=== PATIENT | female | born 2000 | race Caucasian/White ===

== ENCOUNTER 2020-11-17 11:57 | Emergency (ER) | payer BC, MEDICAID, SELFPAY ==
[2020-11-17 12:13] VITALS: BP 140/77; PULSE 101; RESP 18; TEMP 36.6; O2SAT 100; BMI 19.5
[2020-11-17] MEDS: sodium chloride 0.9% 1,000 ML 999 ML IV (12:42)
--- NOTE | 2020-11-17 12:43 | ED_ITS ---
HPI - Syncope General: Chief Complaint: Syncope Stated Complaint: syncopal episode in shower 10 wks Time Seen by Provider: 11/17/20 12:17 History of Present Illness: HPI narrative: The patient is a 19-year-old female G1 at 10 weeks who comes to the ER after an episode of syncope in the shower. She says she felt lightheaded and passed out for about 45 seconds. She denies any injuries. She says prior to being she had frequent episodes of lightheadedness but has never passed out. She admits to eating dinner and breakfast this morning but says she feels like she has not drink enough liquids. MD complaint: loss of consciousness -: second(s) (45) Prodromal symptoms: lightheaded Context: standing up Injuries sustained associated with event: none Associated symptoms: Reports no associated symptoms; Deny abdominal pain, chest pain or headache(s) Treatments prior to arrival: none Review of Systems General: Reports: 10 or more systems reviewed and unremarkable except in HPI and below Const: Denies: fatigue Eyes: Denies: change in vision, blurry vision or eye redness ENMT: Denies: throat pain, swelling of lips/tongue, ear or mastoid pain or nasal congestion Card: Denies: chest pain, palpitations, irregular heart rhythm, edema, dyspnea on exertion or orthopnea Resp: Denies: dyspnea, productive cough or non-productive cough GI: Denies: abdominal pain, diarrhea or GI cramping : Denies: flank pain, difficulty voiding, urinary frequency or urinary urgency Musc: Denies: neck pain, back pain, extremity pain, joint pain, joint redness, limited range of motion or muscle weakness Skin/Breast: Denies: rash, pruritus, erythema, skin pain or skin tenderness Neuro: Denies: headache(s), numbness in extremities, weakness in extremities, sensory changes, difficulty walking, dizziness, confusion or Slurred speech present Psych: Denies: anxiety or depression Endo: Denies: polyuria All/Imm: Denies: urticaria, throat swelling or tongue swelling Physical Exam Const: COMMON NORMALS: no acute distress, average body habitus, patient oriented x3, no limitations, healthy appearing, alert and well nourished GENERAL APPEARANCE: cooperative, comfortable, well kempt and well developed ORIENTATION/CONSCIOUSNESS: Yes awake, Yes oriented to person, Yes oriented to place and Yes oriented to time HENMT: COMMON NORMALS: normocephalic, external ears normal and Normal external nose present HEAD & SCALP: normal to inspection and normocephalic NOSE: Normal external nose present EXTERNAL EAR: Yes external ears normal MOUTH: Normal oral and palatal mucosa present THROAT: posterior oropharynx normal Eye: COMMON NORMALS: Equal, round and reactive pupils present and EOMs intact bilaterally GENERAL EYE: appearance normal, both eyes and all related structures PUPIL: Yes Equal, round and reactive pupils present Neck/C-Spine: COMMON NORMALS: full ROM, no lymphadenopathy, no meningeal signs and no JVD GENERAL: Yes normal visual inspection Lymph: LYMPHATIC: no lymphadenopathy noted Chest: COMMONS NORMALS: normal inspection of the chest and normal palpation of entire chest wall Resp: COMMON NORMALS: normal respiratory effort, No retractions, No use of accessory muscles, clear to auscultation bilaterally and percussion normal EFFORT & INSPECTION: Yes able to speak in complete sentences AUSCULTATION: clear to auscultation bilaterally PERCUSSION: percussion normal Cardio: COMMON NORMALS: no JVD, regular rate, regular rhythm, S1 normal heart sound present, S2 normal heart sound present and Peripheral pulses 2+ throughout RATE: regular rate RHYTHM: regular rhythm HEART SOUNDS: S1 normal heart sound present and S2 normal heart sound present PERIPHERAL PULSES: Peripheral pulses 2+ throughout GI: COMMON NORMALS: Normal to inspection, nondistended, normoactive bowel sounds present, Soft to palpation, non-tender and no masses INSPECTION: Yes normal to inspection PALPATION: Yes Soft to palpation : COMMON NORMALS: Yes no CVA tenderness BLADDER/KIDNEY EXAM: Yes no CVA tenderness Back/Pelvis: COMMON NORMALS: no CVA tenderness, thoracic and lumbar spine normal to inspection, no thoracic nor lumbar tenderness and thoraco-lumbar ROM normal Extremity: COMMON NORMALS: normal to inspection, full ROM, capillary refill normal, no joint enlargement and no pedal edema GENERAL: Yes normal exam except as noted Neuro: COMMON NORMALS: patient oriented x3, CN's II-XII intact bilaterally, moves all extremities, no focal motor deficits, no sensory deficits noted and gait normal SENSORIUM/ORIENTATION: Yes alert, Yes oriented to person, Yes oriented to place and Yes oriented to time MENINGEAL SIGNS: Yes no meningeal signs Psych: COMMON NORMALS: mental status grossly normal, Normal thought process present, cooperative, normal affect and speech normal APPEARANCE: Yes well kempt ATTITUDE: Yes calm SPEECH: Yes normal speech THOUGHT PROCESS: Normal thought process present Skin: COMMON NORMALS: no rashes or lesions noted GENERAL SKIN EXAM: no rashes or lesions noted Course Vital Signs: Vital signs: Vital Signs Temperature 97.9 F 11/17/20 12:13 Pulse Rate 95 11/17/20 14:53 Respiratory Rate 18 11/17/20 14:53 Blood Pressure 111/67 11/17/20 14:53 Pulse Oximetry 98 11/17/20 14:53 MDM - Syncope MDM Narrative: Medical decision making narrative: The patient came in with an episode of syncope at home. No injuries. She is 10 weeks and has no issues with her . Denies contraction pains or vaginal discharge. Likely a mild dehydration event. She was given a liter of IV fluids. Lab work and urine looks clean. Stable for discharge. Discussed with Dr. Evangelista and recommended follow-up this week with him. ER with worsening symptoms Lab Data: Labs: Lab Results 11/17/20 11/17/20 11/17/20 Range/Units 12:40 12:40 12:40 WBC 6.9 (4.5-13.0) 10^3/ uL RBC 4.55 (4.1-5.3) 10^6/u L Hgb 13.4 (11.5-15.3) g/dL Hct 39.3 (37.0-47.0) % MCV 86.4 (81-99) fL MCH 29.5 (28.0-34.0) pg MCHC 34.1 (30.0-36.0) g/dL RDW 11.9 L (12.1-15.1) % Plt Count 150 (130-400) 10^3/c mm MPV 9.1 (7.4-10.4) fL Neut % (Auto) 75.7 % Lymph % (Auto) 14.1 % [place] % (Auto) 8.3 % Eos % (Auto) 1.2 % Baso % (Auto) 0.3 % Neut # (Auto) 5.22 (1.8-8.0) 10^3/u L Lymph # (Auto) 1.0 L (1.5-6.5) 10^3/u L [place] # (Auto) 0.6 (0.2-0.9) 10^3/u L Eos # (Auto) 0.1 (0.0-0.8) 10^3/u L Baso # (Auto) 0.0 (0.0-0.1) 10^3/u L Nucleated RBC % (a uto) 0 % Nucleated RBCs # 0.0 /100WBC Sodium 136 (136-145) mmol/L Potassium 3.7 (3.5-5.1) mmol/L Chloride 102 (98-107) mmol/L Carbon Dioxide 23 (22-29) mmol/L Anion Gap 14.7 (5-19) BUN 7 (6-20) mg/dL Creatinine 0.4 L (0.5-0.9) mg/dL GFR Calculation 203.5 H (90-130) mL/min Glucose 88 (65-115) mg/dL Calculated Osmolal ity 279 L (285-295) mOsm/k g Calcium 8.8 (8.5-10.5) mg/dL Total Bilirubin 0.3 (0.15-1.2) mg/dL AST 15 (0-32) U/L ALT 12 (0-33) U/L Alkaline Phosphata se 50 (35-105) IU/L Total Protein 7.3 (6.6-8.7) g/dL Albumin 4.0 (3.5-5.2) g/dL Globulin 3.3 (1.3-4.6) g/dL Urine Color Yellow (Yellow) Urine Appearance Sl hazy (CLEAR) Urine pH 6.5 (5-7) Ur Specific Gravit y 1.020 (1.005-1.030) Urine Protein Neg (Negative) Urine Glucose (UA) Norm (Normal) Urine Ketones Negative (Negative) Urine Blood Neg (Negative) Urine Nitrate Negative (Negative) Urine Bilirubin 1+ H (Negative) Urine Urobilinogen 1 H (Negative) mg/dL Ur Leukocyte Teresa ase Negative (Negative) Urine RBC None (0-2) /hpf Urine WBC Rare (0-5) /hpf Ur Squamous Epith Cells 15-25 H (0-5) /hpf Calcium Oxalate Cr ystal 0-4 H /hpf Amorphous Sediment 1+ /hpf Urine Bacteria Trace (NONE) /hpf Fine Granular Cast s 0-4 H /lpf Urine Mucus 1+ /hpf Discharge Plan Discharge Patient Disposition: Home Clinical Impression: Vasovagal syncope, Dehydration Condition: Stable Prescriptions: No Action 28 mg iron- 800 mcg Tablet 1 tab PO DAILY RF: 0 Discharge Orders: Discharge ED (Routine); Ordered 11/17/20 Ordered By: Ty Padilla Referrals: Perla Vargas MD [Primary Care Provider] - Discharge Diet: Advance as tolerated Discharge Activity: Resume usual activity Patient Instructions: Syncope (ED), Opioid Safety Activity Restrictions/Additional Instructions: He passed out from being mildly dehydrated. Please continue to drink lots of water and follow-up with Dr. Evangelista later this week. Return to the ER with worsening symptoms otherwise follow-up with him. Coding Level of Care Code ED Lumber Sorter Machine for Padmaja Fwd Exam Comprehensive
[2020-11-17 12:46] VITALS: BP 133/78; PULSE 101; RESP 18; O2SAT 100
[2020-11-17 12:55] LABS: Basophils % 0.3 %; Eosinophils # 0.1 10^3/uL (0.0-0.8); Eosinophils % 1.2 %; Hematocrit 39.3 % (37.0-47.0); Hemoglobin 13.4 g/dL (11.5-15.3); Lymphocytes % 14.1 %; Mean Corpuscular HGB Conc 34.1 g/dL (30.0-36.0); Mean Corpuscular Hemoglobin 29.5 pg (28.0-34.0); Mean Corpuscular Volume 86.4 fL (81-99); Mean Platelet Volume 9.1 fL (7.4-10.4); Monocytes # 0.6 10^3/uL (0.2-0.9); Monocytes % 8.3 %; Neutrophils # 5.22 10^3/uL (1.8-8.0); Neutrophils % 75.7 %; Nucleated Red Blood Cells % 0 %; Platelet Count 150 10^3/cmm (130-400); Red Blood Count 4.55 10^6/uL (4.1-5.3); Red Cell Distribution Width 11.9 % (12.1-15.1); White Blood Count 6.9 10^3/uL (4.5-13.0)
[2020-11-17 13:03] LABS: Add Urine Microscopic? YES; Bilirubin Urine 1+ (Negative); Blood Urine Neg (Negative); Glucose Urine UA Norm (Normal); Ketones Urine Negative (Negative); Leukocyte Esterase Urine Negative (Negative); Nitrate Urine Negative (Negative); Protein Urine Neg (Negative); Urine Appearance SL Hazy (CLEAR); Urine Color Yellow (Yellow); Urobilinogen Urine 1 mg/dL (Negative); pH Urine 6.5 (5-7)
[2020-11-17 13:05] LABS: Amorphous Sediment Urine 1+ /hpf; Bacteria Urine TRACE /hpf; Calcium Oxalate Crystals Urine 0-4 /hpf; Fine Granular Casts Urine 0-4 /lpf; Mucus Urine 1+ /hpf; Squamous Epithelial Cell Urine 15-25 /hpf (0-5); WBC Urine RARE /hpf (0-5)
[2020-11-17 13:06] LABS: Add Urine Culture? No
[2020-11-17 13:12] LABS: Alanine Aminotransferase 12 U/L (0-33); Alkaline Phosphatase 50 IU/L (35-105); Blood Urea Nitrogen 7 mg/dL (6-20); Calcium 8.8 mg/dL (8.5-10.5); Carbon Dioxide 23 mmol/L (22-29); Chloride 102 mmol/L (98-107); Globulin 3.3 g/dL (1.3-4.6); Glomerular Filtration Rate 203.5 mL/min (90-130); Glucose 88 mg/dL (65-115); Osmolality Calculated 279 mOsm/kg (285-295); Sodium 136 mmol/L (136-145); Total Bilirubin 0.3 mg/dL (0.15-1.2); Total Protein 7.3 g/dL (6.6-8.7)
[2020-11-17 13:17] LABS: Anion Gap 14.7 (5-19); Aspartate Amino Transferase 15 U/L (0-32); Potassium 3.7 mmol/L (3.5-5.1)
[2020-11-17 14:53] VITALS: BP 111/67; PULSE 95; RESP 18; O2SAT 98
[2020-11-17 16:20] VITALS: BP 113/79; PULSE 98; RESP 18; O2SAT 99
== END 2020-11-17 16:23 | disposition home or self-care (01) ==
PROVIDERS: Emergency Provider Family Medicine; PCP Internal Medicine
DX: O26.891 Other specified pregnancy related conditions, first trimester (principal); R55 Syncope and collapse; E86.0 Dehydration; Z3A.10 10 weeks gestation of pregnancy
CPT/HCPCS: 80053; 81001; 85025; 96360; 99283; J7030

== ENCOUNTER 2021-05-27 11:36 | Outpatient (CLI) | payer BC, MEDICAID, SELFPAY ==
[2021-05-27 11:47] VITALS: RESP 17; TEMP 36.9
[2021-05-27 11:48] VITALS: BMI 26.3
[2021-05-27 11:54] VITALS: BP 138/92; PULSE 111
[2021-05-27 12:10] VITALS: BP 127/70; PULSE 91
[2021-05-27 12:25] VITALS: BP 128/75; PULSE 91
[2021-05-27 12:40] VITALS: BP 128/75; PULSE 91
== END 2021-05-27 12:40 | disposition home or self-care (01) ==
LOC: OPOB 11:45 → OBGYN 11:46
PROVIDERS: PCP Internal Medicine; Visit Provider Family Medicine
DX: O16.9 Unspecified maternal hypertension, unspecified trimester (principal); Z3A.00 Weeks of gestation of pregnancy not specified
CPT/HCPCS: 59025; 99211

== ENCOUNTER 2021-06-03 22:40 | Inpatient (IN) | payer BC, MEDICAID, SELFPAY ==
[2021-06-03] VITALS (8 sets, daily range): BP systolic 131–148; BP diastolic 75–91; PULSE 110–116; RESP 14–16; TEMP 36.9–37; BMI 26.4
[2021-06-03] MEDS: miSOPROStol 100 mcg tablet 25 MCG VAGINAL (21:55)
[2021-06-03 22:02] LABS: Basophils # 0.1 10^3/uL (0.0-0.1); Basophils % 0.3 %; Eosinophils % 0.2 %; Hematocrit 40.7 % (37.0-47.0); Hemoglobin 13.8 g/dL (11.5-15.3); Lymphocytes # 1.2 10^3/uL (0.8-4.8); Lymphocytes % 6.7 %; Mean Corpuscular HGB Conc 33.9 g/dL (30.0-36.0); Mean Corpuscular Hemoglobin 29.8 pg (28.0-34.0); Mean Corpuscular Volume 87.9 fl (81-99); Monocytes # 1.3 10^3/uL (0.2-0.9); Neutrophils # 15.54 10^3/uL (1.8-7.7); Neutrophils % 84.9 %; Nucleated Red Blood Cells % 0 %; Platelet Count 141 10^3/cmm (130-400); Red Blood Count 4.63 10^6/uL (4.1-5.3); Red Cell Distribution Width 13.2 % (12.1-15.1); White Blood Count 18.3 10^3/uL (4.0-10.0)
[2021-06-04] VITALS (156 sets, daily range): BP systolic 97–141; BP diastolic 54–93; PULSE 82–151; RESP 14–18; TEMP 35.8–37.1; O2SAT 95–100
[2021-06-04] MEDS: lactated ringers 1,000 ML 999 ML IV (00:19)
[2021-06-04] MEDS: dextrose 5%-lactated ringers 1,000 ML 125 ML IV ×2 (01:23→09:35)
--- NOTE | 2021-06-04 01:30 | ANES.PREANE2 ---
Pre-Anesthetic Assessment Pre-Anesthetic Assessment: Height/Weight: Height 1.7 m Weight 76.657 kg Temp Pulse Resp BP Pulse Ox 98.6 F 93 18 117/65 96 06/03/21 20:25 06/04/21 01:55 06/04/21 01:14 06/04/21 01:55 06/04/21 01:51 Preop Diagnosis: IUP Proposed Procedure: labor epidural Was Beta Izabella taken within 24 hours: N/A Was Clonidine taken within 24 hours: N/A Social: Social History: No alcohol and No tobacco Exam: Pre-Anes Outpt Exam: alert, oriented x 3 and regular rate & rhythm Airway: Submandibular: WNL Cervical ROM: WNL MP: 2 Dentition: Full History/ROS: No significant history except as noted Pulmonary: Pulmonary: None reported CV/HEM: CV/HEM: None reported : : None reported Hepatic: Hepatic: None reported GI: GI: None reported Metabolic: Metabolic: None reported Musc/skel: Musc/skel: None reported Neuropsych: Neuropsych: None reported Anesthetic Plan: ASA status: 2 Anesthesia: Anesthesia Evaluation and Regional (specify below) (epidural) Risk of > 500 ml blood loss (7ml/kg in children): No Meds/Allergies Current Medications: Current Medications Generic Name Dose Route Start Last Admin Trade Name Freq PRN Reason Stop Dose Admin Lactated Ringer's 1,000 mls @ 999 m ls/hr 06/03/21 20:56 06/04/21 01:23 Lactated Ringers IV Infused .Q1H1M PRN Infusion See label comment s Dextrose/Lactated Ringer's 1,000 mls @ 125 m ls/hr 06/03/21 20:56 06/04/21 01:23 Dextrose 5%-Lact ated Ringers IV 125 mls/hr .Q8H PRN Administration AGITATION Misoprostol 25 mcg 06/03/21 21:00 06/03/21 21:55 Misoprostol 100 Mcg Tablet VAGINAL 06/04/21 05:01 25 mcg Q4H DAVIE Administration PFSH Anesthesia Female Reproductive History: : 1 Data Anesthesia CBC & Chem 7: 06/03/21 21:47 Other Labs: Laboratory Results - last 48 hr 06/03/21 21:47 WBC 18.3 H RBC 4.63 Hgb 13.8 Hct 40.7 MCV 87.9 MCH 29.8 MCHC 33.9 RDW 13.2 Plt Count 141 MPV 10.0 Neut % (Auto) 84.9 Lymph % (Auto) 6.7 [place] % (Auto) 7.0 Eos % (Auto) 0.2 Baso % (Auto) 0.3 Neut # (Auto) 15.54 H Lymph # (Auto) 1.2 [place] # (Auto) 1.3 H Eos # (Auto) 0.0 Baso # (Auto) 0.1 Nucleated RBC % (auto) 0 Nucleated RBCs # 0.0 Cardiac Studies: No Data to Display
--- NOTE | 2021-06-04 01:59 | P.ANES_ITS ---
Anesthesia Procedures Procedure/Date: 06/04/21 Epidural: Time Out Performed: Yes Consents Signed: Procedure Consent Consent: from patient, risks and benefits reviewed and patient agrees to proceed Lumbar Level: L3-L4 Epidural position: sitting Epidural procedure: sterile prep of area, 1% lidocaine to numb the area, 18 g needle, neg for parest hesia, test dose given, 1.5% xylocaine 1:200k epi, placed PCEA, no systemic response, sterile dressing applied, L.U.D. no apparent complications and 0.2% Ropiavacaine @ mls/hr (13) Additional Comments: TIARA at 5.5 taped at 12 at skin
[2021-06-04] MEDS: oxytocin 30 UNIT/500 ML BAG IV (05:34)
[2021-06-04] MEDS: ondansetron 2 mg/ML SDV 2 mL 4 MG IVP (05:56)
--- NOTE | 2021-06-04 06:53 | PM.OPHPUD ---
Labor & Delivery H&P Update Date of Procedure: June 04, 2021 Date H&P Performed: 06/02/21 H&P update information: I have reviewed H&P completed within last 30 days, I have examined patient prior to procedure and H&P to be scanned into chart Changes to previous documentation: Contractions less than every 5 minutes, with a cervix dilated to 4 cm. Admission Diagnosis: 20-year-old 1 at 38 weeks estimated gestational age presenting with contractions and cervical change Preop diagnosis: IUP Planned procedure: Spontaneous vaginal delivery Related Problem List Diagnoses (1) 38 weeks gestation of : (2) Active labor at term:
--- NOTE | 2021-06-04 09:16 | PM.DELIVERY ---
Delivery Note: Date of delivery: June 04, 2021 Pre-Delivery Course: The patient presented to the hospital with consistent contractions less than every 5 minutes while making cervical change. She was GBS negative. Covid 19 -. Remainder of labs within normal limits. Her labor was augmented with Cytotec 25 mcg. From there she progressed to complete without difficulty. She had spontaneous rupture of membranes. Delivery: DELIVERY: The patient progressed to complete without difficulty. She delivered a male with a weight of 6 pounds 10 ounces with Apgars of 8, 9. The baby was delivered from the MARTIN position. The baby's mouth and nose were suctioned at the site of the perineum. The baby was then completely delivered and placed on the mother's abdomen. The cord was then clamped and cut. There was no nuchal cord. There was no meconium. The placenta and 3 vessel cord were delivered intact shortly thereafter. The perineum and vaginal vault were carefully examined. Second-degree posterior midline tear was noted that was repaired with 3-0 Vicryl in usual fashion.. Both the mother and the baby were in stable condition. A&P Assessment and plan (1) 38 weeks gestation of : I anticipate routine care. If all goes well, I anticipate she will be discharged tomorrow with her infant. Status: Acute (2) Active labor at term: Status: Acute (3) Spontaneous vaginal delivery: Status: Acute Coding Level of Care Code Acute Horse Trekking Guide for Chg Fwd Diagnoses 38 weeks gestation of Z3A.38 Active labor at term Spontaneous vaginal delivery O80
--- NOTE | 2021-06-04 14:17 | ANE.PACU2 ---
Inpatient post-anesthesia follow up: Airway intact: Yes Vital signs: Temperature 97.9 F Pulse Rate 120 Respiratory Rate 17 Blood Pressure 132/79 Pulse Oximetry 100 Oxygen Delivery Me thod Room Air Oxygen Flow Rate Fraction of Inspir ed Oxygen Hydration adequate: Yes Nausea and vomiting: No Pain level: 2 Mental status: Baseline
[2021-06-04] MEDS: ibuprofen 800 mg tablet PO ×2 (15:15→21:28)
--- NOTE | 2021-06-05 00:22 | P.DS_ITS ---
Discharge Providers PATCH DRILLER Date of Admission: 06/03/21 22:40 Date of Discharge: 06/05/21 Attending Provider at Admission: Ethan Evangelista MD Attending Provider at Discharge: Ethan Evangelista MD Primary Care Provider: Perla Vargas MD Diagnoses at Discharge Discharge Diagnosis (1) 38 weeks gestation of : Status: Acute (2) Active labor at term: Status: Acute (3) Spontaneous vaginal delivery: Status: Acute Reason for Visit Reason for Visit: contractions Hospital Course Hospital Course The patient presented to the hospital in active labor. She had an epidural placed. She progressed to complete without difficulty. She had an unremarkable delivery of a healthy-appearing 38-week male . Her course was also unremarkable. Her bleeding was within normal limits. Her pain was well controlled. She breast-fed well. Information Peripartum Data: Delivery Method: Vaginal Physical Exam Narrative: EXAM NARRATIVE: The patient is alert. She appears comfortable. Her heart has a regular rate and rhythm with no murmurs appreciated. Lungs are clear to auscultation bilaterally. Her fundus is firm and below the umbilicus. Urinary Catheter Management^: [place] Latex: Cath Placed During This Visit: yes Reason for Continuing Indwelling Catheter: Required Immobilization for Trauma or Surgery or Anesthesia Urinary Catheter Date of Insertion: 06/04/21 Urinary Catheter Time of Insertion: 02:34 Discharge Data Data Completed and Pending: Pending at discharge Category Date Time Status Hemagram Timed Lab 06/04/21 23:36 Ordered Vitals: Last Vital Signs Temp 98.2 F 06/04/21 18:00 Pulse 105 H 06/04/21 18:00 Resp 16 06/04/21 18:00 BP 117/72 06/04/21 18:00 Pulse Ox 100 06/04/21 08:41 Discharge Plan Discharge Patient Disposition: Home Condition: Stable Prescriptions: New ibuprofen 800 mg Tablet 800 mg PO TID 45 Days Qty: 135 RF: 0 Continued PNV cmb#95-ferrous fumarate-FA [] 28 mg iron- 800 mcg Tablet 1 tab PO DAILY RF: 0 Discharge Orders: Discharge Order (Routine); Ordered 06/05/21 Ordered By: Ethan Evangelista Referrals: Ethan Evangelista MD [Physician] - 6 Weeks Discharge Diet: Usual diet Discharge Activity: Limit activity as instructed Patient Instructions: Opioid Safety Discharge Attestations PATCH DRILLER Time Spent in Discharge Care*: less than 30 min Specific Discharge Activities: Specific discharge activities: educating patient and educating and/or supporting family/caregiver Coding Level of Care Code Acute Narcotics And Vice Detective for Chg Fwd Diagnoses 38 weeks gestation of Z3A.38 Active labor at term Spontaneous vaginal delivery O80
[2021-06-05 01:13] LABS: Hemoglobin 11.9 g/dL (11.5-15.3); Mean Corpuscular HGB Conc 33.1 g/dL (30.0-36.0); Mean Corpuscular Hemoglobin 30.1 pg (28.0-34.0); Mean Corpuscular Volume 91.1 fl (81-99); Mean Platelet Volume 10.3 fL (7.4-10.4); Platelet Count 117 10^3/cmm (130-400); Red Blood Count 3.95 10^6/uL (4.1-5.3); Red Cell Distribution Width 13.3 % (12.1-15.1); White Blood Count 13.8 10^3/uL (4.0-10.0)
[2021-06-05 04:30] VITALS: BP 123/80; PULSE 85; RESP 14
[2021-06-05] MEDS: ibuprofen 800 mg tablet PO (08:45)
[2021-06-05] MEDS: docusate sodium 100 mg Capsule PO (08:45)
[2021-06-05 09:45] VITALS: BP 117/82; PULSE 84; RESP 18; TEMP 36.7; O2SAT 99
[2021-06-05 12:10] VITALS: BP 113/64; PULSE 90; RESP 18; TEMP 36.7; O2SAT 100
== END 2021-06-05 12:50 | disposition home or self-care (01) | DRG 807 ==
LOC: OPOB 22:41 → OBGYN 22:41
PROVIDERS: Admitting Provider Family Medicine; PCP Internal Medicine; Visit Provider Family Medicine
DX: O70.1 Second degree perineal laceration during delivery (principal); Z37.0 Single live birth; Z3A.38 38 weeks gestation of pregnancy
CPT/HCPCS: 12345; 36415; 51702; 59025; 59409; 85025; 85027; 98960; 99211; J2405; J2795

== ENCOUNTER 2023-09-01 17:10 | Inpatient (IN) | payer OTHER, SELFPAY ==
[2023-09-01] VITALS (10 sets, daily range): BP systolic 137–162; BP diastolic 82–97; PULSE 89–108; RESP 17–18; O2SAT 97; BMI 31.3
[2023-09-01 17:19] LABS: Basophils % 0.3 %; Eosinophils # 0.2 10^3/uL (0.0-0.8); Eosinophils % 1.1 %; Hematocrit 35.9 % (36-47); Lymphocytes # 1.1 10^3/uL (0.8-4.8); Lymphocytes % 7.3 %; Mean Corpuscular HGB Conc 34.3 g/dL (30-55); Mean Corpuscular Hemoglobin 28.1 pg (27-33); Mean Platelet Volume 10.9 fL (7.4-10.4); Monocytes % 6.5 %; Neutrophils # 12.17 10^3/uL (1.8-7.7); Neutrophils % 83.4 %; Nucleated Red Blood Cells % 0 %; Platelet Count 170 10^3/cmm (157-399); Red Blood Count 4.38 10^6/uL (3.85-5.65); Red Cell Distribution Width 13.1 % (12.1-15.1); White Blood Count 14.59 10^3/uL (3.29-11.43)
[2023-09-01] MEDS: lactated ringers 1,000 ML 999 ML IV (18:49)
[2023-09-01] MEDS: oxytocin 30 UNIT/500 ML BAG 600 UNIT IV (19:11)
--- NOTE | 2023-09-01 19:26 | PM.OPHPUD ---
Labor & Delivery H&P Update Date of Procedure: September 01, 2023 Date H&P Performed: 06/02/21 Changes to previous documentation: The patient was 7 cm dilated upon arrival at the hospital. Admission Diagnosis: 22-year-old 2 para 1-0-0-1 at 39 weeks estimated gestational age Planned procedure: Vaginal delivery Other information: The patient is a otherwise healthy 22-year-old female who presented to the hospital in active labor. She was seen in my office earlier in the day. At that time her membranes were stripped. She then began having contractions shortly thereafter that progressed to the point that she came to the hospital. She did not have rupture membranes. She had no other problems. Her been unremarkable. Her lab work were also unremarkable. Her blood was a positive. Her antibody screen is negative. Her RPR was nonreactive. Her HIV hepatitis chlamydia and gonorrhea were also negative. She is rubella immune. Her Pap test was normal. Her drug screen was negative. She passed her glucose screen. She was GBS negative. Related Problem List Diagnoses (1) 39 weeks gestation of : A&P Assessment and plan (1) 39 weeks gestation of : The patient desires natural delivery without an epidural. Will consider an amniotomy when she is ready. Otherwise anticipate a spontaneous vaginal delivery. Status: Acute
--- NOTE | 2023-09-01 19:32 | PM.DELIVERY ---
Delivery Note: Date of delivery: September 01, 2023 Pre-delivery diagnoses: 22-year-old 2 para 1-0-0-1 at 39 weeks estimated gestational age Post-delivery diagnoses: Status post spontaneous vaginal delivery Procedure: Spontaneous vaginal delivery Delivering Physician: Ethan Evangelista Estimated blood loss (mL): 150 Pre-Delivery Course: The patient presented to the hospital in active labor. She progressed from 7 to complete without difficulty. An amniotomy was performed when she was 8 cm. There were no problems or complications. Delivery: DELIVERY: The patient progressed to complete without difficulty. She delivered a male with a weight of 7 pounds 14 ounces with Apgars of 9, 9. The baby was delivered from the MARTIN position. The baby's mouth and nose were suctioned at the site of the perineum. The baby was then completely delivered and placed on the mother's abdomen. The cord was then clamped and cut. There was a nuchal cord x 1. The baby was delivered through the cord.. There was no meconium. The placenta and 3 vessel cord were delivered intact shortly thereafter. The perineum and vaginal vault were carefully examined. No lacerations were noted. Both the mother and the baby were in stable condition. Post-Delivery Status: Good A&P Assessment and plan (1) Spontaneous vaginal delivery: I anticipate routine care. (2) 39 weeks gestation of : Coding Level of Care Code Acute Code for Chg Fwd Diagnoses Spontaneous vaginal delivery O80 39 weeks gestation of Z3A.39
[2023-09-01] MEDS: benzocaine-menthol 78 gm Canister 1 SPRAY TOPICAL (20:45)
[2023-09-01] MEDS: lanolin oint 7 gm 1 APPLIC TOPICAL (20:45)
[2023-09-02] VITALS (7 sets, daily range): BP systolic 135–163; BP diastolic 74–111; PULSE 80–97; RESP 16–17; TEMP 36.5–36.8; O2SAT 97
--- NOTE | 2023-09-02 07:30 | PM.OBGYDC ---
Discharge Providers AVIATION SURVIVAL TECHNICIAN Date of Admission: 09/01/23 17:10 Date of Discharge: 09/02/23 Attending Provider at Admission: Ethan Evangelista MD Attending Provider at Discharge: Ethan Evangelista MD Primary Care Provider: Ethan Evangelista Diagnoses at Discharge Discharge Diagnosis (1) Spontaneous vaginal delivery: Status: Acute (2) 39 weeks gestation of : Status: Acute Reason for Visit Reason for Visit: contractions Hospital Course Hospital Course The patient presented to the hospital in active labor. She quickly progressed to 8 cm. An amniotomy was performed. About 1/2-hour after that she had unremarkable spontaneous vaginal delivery of a healthy male infant. Her course has been unremarkable. Her bleeding was within normal limits. Her pain was well-controlled. She breast-fed well. Information Peripartum Data: Infant Delivery Method: Vaginal Physical Exam Narrative: The patient is alert. She appears comfortable. Her heart has a regular rate and rhythm with no murmurs appreciated. Lungs are clear to auscultation bilaterally. Her fundus is firm and below the umbilicus. Discharge Data Studies Completed and Pending Pending at discharge Category Date Time Status Hemagram Timed Lab 09/02/23 07:31 Uncollected Laboratory Results WBC 14.59 10^3/uL (3.29-11.43) H 09/01/23 17:05 RBC 4.38 10^6/uL (3.85-5.65) 09/01/23 17:05 Hgb 12.30 g/dL (11.27-16.99) 09/01/23 17:05 Hct 35.9 % (36-47) L 09/01/23 17:05 MCV 82.0 fl (85-98) L 09/01/23 17:05 MCH 28.1 pg (27-33) 09/01/23 17:05 MCHC 34.3 g/dL (30-55) 09/01/23 17:05 RDW 13.1 % (12.1-15.1) 09/01/23 17:05 Plt Count 170 10^3/cmm (157-399) 09/01/23 17:05 MPV 10.9 fL (7.4-10.4) H 09/01/23 17:05 Neut % (Auto) 83.4 % 09/01/23 17:05 Lymph % (Auto) 7.3 % 09/01/23 17:05 [place] % (Auto) 6.5 % 09/01/23 17:05 Eos % (Auto) 1.1 % 09/01/23 17:05 Baso % (Auto) 0.3 % 09/01/23 17:05 Neut # (Auto) 12.17 10^3/uL (1.8-7.7) H 09/01/23 17:05 Lymph # (Auto) 1.1 10^3/uL (0.8-4.8) 09/01/23 17:05 [place] # (Auto) 1.0 10^3/uL (0.2-0.9) H 09/01/23 17:05 Eos # (Auto) 0.2 10^3/uL (0.0-0.8) 09/01/23 17:05 Baso # (Auto) 0.0 10^3/uL (0.0-0.1) 09/01/23 17:05 Nucleated RBC % (auto) 0 % 09/01/23 17:05 Nucleated RBCs # 0.0 /100WBC 09/01/23 17:05 Vitals Last Vital Signs Pulse 97 09/02/23 05:34 Resp 16 09/02/23 03:48 BP 135/90 09/02/23 05:34 Pulse Ox 97 09/02/23 01:25 O2 Del Method Room Air 09/01/23 22:30 Results Labs OB ([facility]): Hct 35.9 % (36-47) L 09/01/23 Hgb 12.30 g/dL (11.27-16.99) 09/01/23 Plt Count 170 10^3/cmm (157-399) 09/01/23 Discharge Plan Discharge Patient Disposition: Home Condition: Stable Prescriptions: New ibuprofen 800 mg Tablet 800 mg PO TID Qty: 45 0RF Continued PNV cmb#95-ferrous fumarate-FA [] 28 mg iron- 800 mcg Tablet 1 tab PO DAILY Discharge Orders: Discharge Order (Routine); Ordered 09/02/23 Ordered By: Ethan Evangelista Referrals: Ethan Evangelista MD [Physician] - 6 Weeks Discharge Diet: Usual diet Discharge Activity: Limit activity as instructed Patient Instructions: Opioid Safety Discharge Attestations AVIATION SURVIVAL TECHNICIAN Time Spent in Discharge Care*: less than 30 min Coding Level of Care Code Acute Code for Chg Fwd Diagnoses Spontaneous vaginal delivery O80 39 weeks gestation of Z3A.39
[2023-09-02 08:17] LABS: Hematocrit 36.7 % (36-47); Mean Corpuscular HGB Conc 33.2 g/dL (30-55); Mean Corpuscular Hemoglobin 27.8 pg (27-33); Mean Corpuscular Volume 83.6 fl (85-98); Mean Platelet Volume 11.2 fL (7.4-10.4); Platelet Count 172 10^3/cmm (157-399); Red Blood Count 4.39 10^6/uL (3.85-5.65); Red Cell Distribution Width 13.4 % (12.1-15.1); White Blood Count 15.86 10^3/uL (3.29-11.43)
[2023-09-02] MEDS: labetalol 200 mg Tablet PO ×2 (11:51→20:53)
[2023-09-02 11:56] LABS: Add Urine Microscopic? NO; Charge for UA Resulting for Rev
[2023-09-02 12:01] LABS: Bilirubin Urine Neg (Negative); Blood Urine Neg (Negative); Glucose Urine UA Norm (Normal); Ketones Urine Negative (Negative); Leukocyte Esterase Urine Negative (Negative); Nitrate Urine Negative (Negative); Protein Urine Neg (Negative); Specific Gravity, Urine 1.005 (1.005-1.030); Urine Appearance Clear (CLEAR); Urine Color Light yellow (Yellow); Urobilinogen Urine Neg (Negative); pH Urine 6.5 (5-7)
--- NOTE | 2023-09-02 12:15 | PC.NURSE ---
follow up BP 172/115 left arm, 168/92 in right arm
[2023-09-02 12:16] LABS: Alanine Aminotransferase 15 U/L (0-33); Albumin Level 3.3 g/dL (3.5-5.2); Alkaline Phosphatase 129 U/L (35-105); Blood Urea Nitrogen 12 mg/dL (6-20); Calcium 9.6 mg/dL (8.5-10.5); Carbon Dioxide 22 mmol/L (22-29); Chloride 107 mmol/L (98-107); Globulin 3.1 g/dL (1.3-4.6); Glomerular Filtration Rate 88.9 mL/min (90-130); Glucose 75 mg/dL (65-115); Osmolality Calculated 286 mOsm/kg (285-295); Sodium 139 mmol/L (136-145); Total Bilirubin 0.2 mg/dL (0.15-1.2); Total Protein 6.4 g/dL (6.6-8.7); Uric Acid 7.9 mg/dL (2.4-5.7)
[2023-09-02 12:28] LABS: Urine Creatinine 23 mg/dL (28-217); Urine Protein Random 17 mg/dL
[2023-09-02 12:55] LABS: UPRO/UCREAT Ratio 0.74 mg/mg CR
[2023-09-02 12:56] LABS: Anion Gap 14.3 (5-19); Aspartate Amino Transferase 30 U/L (0-32); Potassium 4.3 mmol/L (3.5-5.1)
--- NOTE | 2023-09-02 16:45 | P.PN_ITS ---
PRODUCTION OFFICER Subjective 2 Subjective: Interval history: The patient began having elevated blood pressures . Today she began having some that were severe range. As result she was placed on labetalol 2 mg twice daily and a preeclamptic profile was performed. She is found to have an elevated protein creatinine ratio as well as an elevated uric acid. Otherwise she had no symptoms of preeclampsia. She had no increased swelling. She had no headache. She had no visual changes. She has had large-volume urination today. And she has felt great. Labor: Station: +1 Amniotic Membrane Status: Ruptured Monitor Mode: External Contraction Pattern: Regular Vitals/I&O/Wt Last Vital Signs Temp 98.3 F 09/02/23 10:37 Pulse 95 09/02/23 10:37 Resp 17 09/02/23 10:37 BP 163/74 09/02/23 14:28 Pulse Ox 97 09/02/23 01:25 O2 Del Method Room Air 09/02/23 14:28 09/02/23 09/02/23 09/02/23 06:59 14:59 22:59 Output Total 700 / 700 Balance -700 / -350.35 Weight last 48 hrs Weight 200 lb Physical Exam 2 Narrative: The patient is alert. She appears comfortable. Her heart has a regular rate and rhythm with no murmurs appreciated. Lungs are clear to auscultation bilaterally. Her fundus is firm and below the umbilicus. Data 09/02/23 07:45 09/02/23 11:35 A&P Assessment and plan (1) Spontaneous vaginal delivery: (2) 39 weeks gestation of : (3) Preeclampsia: While the patient has had elevated blood pressures, and an elevated protein creatinine ratio, she otherwise has no signs or symptoms of preeclampsia. She has had excellent urine output. Her urine has been clear. She has no swelling. No headache. No visual changes. As result, I am electing not to introduce magnesium at this time. We will adjust in the future depending on her symptoms. Will keep her in the hospital 1 more night to reevaluate her situation and ensure that the preeclampsia continues to resolve.. Attestations 2 Medical Necessity Statement*: The patient will require an additional night stay in the hospital due to the preeclampsia. I am hopeful that she will be discharged home tomorrow depending on continued resolution of her symptoms. Coding Level of Care Code Acute Code for Chg Fwd Diagnoses Spontaneous vaginal delivery O80 39 weeks gestation of Z3A.39 Preeclampsia O14.90
[2023-09-03 04:08] VITALS: BP 141/87; PULSE 94; O2SAT 98
--- NOTE | 2023-09-03 07:00 | PM.OBGYDC ---
Discharge Providers APPLICATIONS ADMINISTRATOR Date of Admission: 09/01/23 17:10 Date of Discharge: 09/03/23 Attending Provider at Admission: Ethan Evangelista MD Attending Provider at Discharge: Ethan Evangelista MD Primary Care Provider: Perla Vargas MD Diagnoses at Discharge Discharge Diagnosis (1) Spontaneous vaginal delivery: Status: Acute (2) 39 weeks gestation of : Status: Acute (3) Preeclampsia: Status: Acute Reason for Visit Reason for Visit: contractions Hospital Course Hospital Course The patient presented to the hospital in active labor. She quickly progressed to 8 cm. An amniotomy was performed. About 1/2-hour after that she had unremarkable spontaneous vaginal delivery of a healthy male infant. Her course has been unremarkable. Her bleeding was within normal limits. Her pain was well-controlled. She breast-fed well. , she began having some elevated blood pressures. She been having some severe blood pressures on her first day. A preeclamptic panel was performed. She was found to have a protein creatinine ratio of 0.7 and an elevated uric acid. Otherwise she had no symptoms of preeclampsia. She had no swelling, headache, visual changes, and felt good otherwise. She was diuresing effectively after the delivery. Regardless, we elected to place her on labetalol 200 mg p.o. twice daily. Because of her lack of symptoms and the fact that she is already diuresing I elected not to place her on magnesium. Information Peripartum Data: Infant Delivery Method: Vaginal Physical Exam Narrative: The patient is alert. She appears comfortable. Her heart has a regular rate and rhythm with no murmurs appreciated. Lungs are clear to auscultation bilaterally. Her fundus is firm and below the umbilicus. She has no edema in her extremities. Discharge Data Studies Completed and Pending Laboratory Results WBC 15.86 10^3/uL (3.29-11.43) H 09/02/23 07:45 RBC 4.39 10^6/uL (3.85-5.65) 09/02/23 07:45 Hgb 12.20 g/dL (11.27-16.99) 09/02/23 07:45 Hct 36.7 % (36-47) 09/02/23 07:45 MCV 83.6 fl (85-98) L 09/02/23 07:45 MCH 27.8 pg (27-33) 09/02/23 07:45 MCHC 33.2 g/dL (30-55) 09/02/23 07:45 RDW 13.4 % (12.1-15.1) 09/02/23 07:45 Plt Count 172 10^3/cmm (157-399) 09/02/23 07:45 MPV 11.2 fL (7.4-10.4) H 09/02/23 07:45 Neut % (Auto) 83.4 % 09/01/23 17:05 Lymph % (Auto) 7.3 % 09/01/23 17:05 [place] % (Auto) 6.5 % 09/01/23 17:05 Eos % (Auto) 1.1 % 09/01/23 17:05 Baso % (Auto) 0.3 % 09/01/23 17:05 Neut # (Auto) 12.17 10^3/uL (1.8-7.7) H 09/01/23 17:05 Lymph # (Auto) 1.1 10^3/uL (0.8-4.8) 09/01/23 17:05 [place] # (Auto) 1.0 10^3/uL (0.2-0.9) H 09/01/23 17:05 Eos # (Auto) 0.2 10^3/uL (0.0-0.8) 09/01/23 17:05 Baso # (Auto) 0.0 10^3/uL (0.0-0.1) 09/01/23 17:05 Nucleated RBC % (auto) 0 % 09/01/23 17:05 Nucleated RBCs # 0.0 /100WBC 09/01/23 17:05 Sodium 139 mmol/L (136-145) 09/02/23 11:35 Potassium 4.3 mmol/L (3.5-5.1) 09/02/23 11:35 Chloride 107 mmol/L (98-107) 09/02/23 11:35 Carbon Dioxide 22 mmol/L (22-29) 09/02/23 11:35 Anion Gap 14.3 (5-19) 09/02/23 11:35 BUN 12 mg/dL (6-20) 09/02/23 11:35 Creatinine 0.8 mg/dL (0.5-0.9) 09/02/23 11:35 GFR Calculation 88.9 mL/min (90-130) L 09/02/23 11:35 Glucose 75 mg/dL (65-115) 09/02/23 11:35 Calculated Osmolality 286 mOsm/kg (285-295) 09/02/23 11:35 Uric Acid 7.9 mg/dL (2.4-5.7) H 09/02/23 11:35 Calcium 9.6 mg/dL (8.5-10.5) 09/02/23 11:35 Total Bilirubin 0.2 mg/dL (0.15-1.2) 09/02/23 11:35 AST 30 U/L (0-32) 09/02/23 11:35 ALT 15 U/L (0-33) 09/02/23 11:35 Alkaline Phosphatase 129 U/L (35-105) H 09/02/23 11:35 Total Protein 6.4 g/dL (6.6-8.7) L 09/02/23 11:35 Albumin 3.3 g/dL (3.5-5.2) L 09/02/23 11:35 Globulin 3.1 g/dL (1.3-4.6) 09/02/23 11:35 Urine Color Light yellow (Yellow) 09/02/23 11:45 Urine Appearance Clear (CLEAR) 09/02/23 11:45 Urine pH 6.5 (5-7) 09/02/23 11:45 Ur Specific [place] 1.005 (1.005-1.030) 09/02/23 11:45 Urine Protein Neg (Negative) 09/02/23 11:45 Urine Glucose (UA) Norm (Normal) 09/02/23 11:45 Urine Ketones Negative (Negative) 09/02/23 11:45 Urine Blood Neg (Negative) 09/02/23 11:45 Urine Nitrate Negative (Negative) 09/02/23 11:45 Urine Bilirubin Neg (Negative) 09/02/23 11:45 Urine Urobilinogen Neg mg/dL (Negative) 09/02/23 11:45 Ur Leukocyte Esterase Negative (Negative) 09/02/23 11:45 U Random Total Protein 17 mg/dL 09/02/23 11:45 Urine Creatinine 23 mg/dL (28-217) L 09/02/23 11:45 Protein/Creatinin Ratio 0.74 mg/mg CR 09/02/23 11:45 Vitals Last Vital Signs Temp 97.7 F 09/02/23 15:40 Pulse 94 09/03/23 04:08 Resp 16 09/02/23 15:40 BP 141/87 09/03/23 04:08 Pulse Ox 98 09/03/23 04:08 O2 Del Method Room Air 09/02/23 15:40 Results Labs OB ([facility]): Hct 36.7 % (36-47) 09/02/23 Hgb 12.20 g/dL (11.27-16.99) 09/02/23 Plt Count 172 10^3/cmm (157-399) 09/02/23 Uric Acid 7.9 mg/dL (2.4-5.7) H 09/02/23 Discharge Plan Discharge Patient Disposition: Home Condition: Stable Prescriptions: New labetalol 200 mg Tablet 200 mg PO BID Qty: 60 0RF Continued PNV cmb#95-ferrous fumarate-FA [] 28 mg iron- 800 mcg Tablet 1 tab PO DAILY Discharge Orders: Discharge Order (Routine); Ordered 09/03/23 Ordered By: Ethan Evangelista Referrals: Ethan Evangelista MD [Physician] - 4-7 days (Please set up a 6-week follow-up as well. Thank you) Discharge Diet: Usual diet Discharge Activity: Limit activity as instructed Patient Instructions: Opioid Safety Discharge Attestations APPLICATIONS ADMINISTRATOR Time Spent in Discharge Care*: less than 30 min Coding Level of Care Code Acute Code for Chg Fwd Diagnoses Spontaneous vaginal delivery O80 39 weeks gestation of Z3A.39 Preeclampsia O14.90
[2023-09-03] MEDS: labetalol 200 mg Tablet PO (09:00)
[2023-09-03 10:35] VITALS: BP 151/101; PULSE 82; RESP 16; TEMP 37.1; O2SAT 98
== END 2023-09-03 09:50 | disposition home or self-care (01) | DRG 807 ==
LOC: OPOB 19:18 → OBGYN 19:18
PROVIDERS: Admitting Provider Family Medicine; PCP Internal Medicine; Visit Provider Family Medicine
DX: O14.94 Unspecified pre-eclampsia, complicating childbirth (principal); Z37.0 Single live birth; Z3A.39 39 weeks gestation of pregnancy
CPT/HCPCS: 36415; 59025; 59409; 80053; 81003; 82570; 84156; 84550; 85025; 85027; 99211; J2590; J7120

== ENCOUNTER 2024-12-15 17:41 | Emergency (ER) | payer OTHER, SELFPAY ==
--- NOTE | 2024-12-15 17:42 | XRR_ITS ---
PROCEDURE INFORMATION: Exam: XR Chest Exam date and time: 12/15/2024 7:25 PM Age: 23 years old Clinical indication: Pain; Chest pressure; C/O intermittent chest tightness, lightheadedness, palpitations for the past week. ; Additional info: Cp TECHNIQUE: Imaging protocol: Radiologic exam of the chest. Views: 1 view. COMPARISON: No relevant prior studies available. FINDINGS: Lungs: Unremarkable. No consolidation. Pleural spaces: Unremarkable. No pleural effusion. No pneumothorax. Heart/Mediastinum: Unremarkable. No cardiomegaly. Bones/joints: Unremarkable. XR/XR chest 1V portable [id number] IMPRESSION: No acute findings.
[2024-12-15 17:45] VITALS: BP 155/89; PULSE 107; RESP 14; TEMP 37.4; O2SAT 95
--- NOTE | 2024-12-15 17:48 | ECG_ITS ---
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 Measurements Intervals [place] Rate: 118 P: 80 RI: 137 QRS: 106 QRSD: 87 T: 27 QT: 340 QTc: 478 Interpretive Statements SINUS TACHYCARDIA RIGHT AXIS DEVIATION [QRS AXIS > 100] POSSIBLE RIGHT VENTRICULAR CONDUCTION DELAY [RSR (QR) IN V1/V2] NONSPECIFIC ST & T-WAVE ABNORMALITY No previous ECG available for comparison Electronically Signed On 12-18-2024 09:22:12 CDT by Erick Mckeon M.D. [id number]
--- NOTE | 2024-12-15 19:44 | W.ED.CHESTPA ---
HPI - Chest Pain General: Chief Complaint: Chest Pain Stated Complaint: chest pain Time Seen by Provider: 12/15/24 19:20 History of Present Illness: 23-year-old female presents emergency room with a complaint of chest discomfort intermittently for the last several days she had some palpitations. She did not had any fever sweats or chills. No productive cough no history of DVT no radiation of discomfort into the neck arms or back. No history of any trauma. Associated symptoms: Deny abdominal pain, dyspnea or fever(s) Related Data Home Medications ?Medication ?Instructions ?Recorded ?Confirmed vit no.95-ferrous 1 tab PO DAILY 11/17/20 09/01/23 fumarate 28 mg-folic acid 800 mcg tablet () Previous Rx's ?Medication ?Instructions ?Recorded labetalol 200 mg tablet 200 mg PO BID #60 tabs 09/03/23 Allergies Allergy/AdvReac Type Severity Reaction Status Date / Time gluten Allergy ADR-Gastrointestinal Verified 12/15/24 17:52 Upset Review of Systems Const: Denies: fever(s) or chills Card: Denies: chest pain Resp: Denies: dyspnea GI: Denies: abdominal pain : Denies: dysuria, urinary frequency or urinary urgency Musc: Denies: neck pain or back pain Skin/Breast: Denies: rash Physical Exam Const: COMMON NORMALS: no acute distress GENERAL APPEARANCE: cooperative and comfortable ORIENTATION/CONSCIOUSNESS: Yes awake, Yes oriented to person, Yes oriented to place and Yes oriented to time HENMT: COMMON NORMALS: normocephalic, atraumatic and hearing grossly normal bilaterally HEAD & SCALP: normocephalic and atraumatic Resp: COMMON NORMALS: normal respiratory effort, No retractions, No use of accessory muscles and clear to auscultation bilaterally AUSCULTATION: clear to auscultation bilaterally Cardio: COMMON NORMALS: regular rate, regular rhythm and No murmurs present (Cardio) RATE: regular rate RHYTHM: regular rhythm GI: COMMON NORMALS: Soft to palpation and No hepatosplenomegaly present AUSCULTATION: Yes normoactive bowel sounds PALPATION: Yes Soft to palpation, No Tenderness to palpation present (GI), No Guarding due to palpation present (GI) and Yes No hepatosplenomegaly present Extremity: COMMON NORMALS: normal to inspection, capillary refill normal, no clubbing, cyanosis or edema, no calf tenderness and no pedal edema Neuro: SENSORIUM/ORIENTATION: Yes oriented to person, Yes oriented to place and Yes oriented to time Skin: COMMON NORMALS: no rashes or lesions noted GENERAL SKIN EXAM: no rashes or lesions noted Course Vital Signs: Vital signs: Vital Signs Temperature 99.3 F 12/15/24 17:45 Pulse Rate 96 12/15/24 21:14 Respiratory Rate 16 12/15/24 21:14 Blood Pressure 125/78 12/15/24 21:14 Pulse Oximetry 98 12/15/24 21:14 Oxygen Delivery Me thod Room Air 12/15/24 20:22 MDM - Chest Pain Medical Decision Making Labs and imaging reviewed chest x-ray did not show any acute fractures EKG Medical Records Labs and imaging reviewed. Chest x-ray nontrending acute EKG showed sinus tachycardia with no acute ST changes. Rate of 118. Repeat EKG also unremarkable rate was 08/16/2001 on the second EKG. She is otherwise asymptomatic at this time. No leukocytosis. Did notice while she was here when the labs were pending she had very times her heart rate would go up to be largely asymptomatic at this time she would be up to the 1 nearly to 120 in a sinus tachycardia then back down into the 80s and 90s. Will discharge patient home observe recheck has any worsening or changes symptoms Lab Data 12/15/24 19:55 12/15/24 19:55 Radiology Impressions Chest X-Ray 12/15/24 17:42 IMPRESSION: No acute findings. Laboratory Results WBC 9.82 10^3/uL (3.29-11.43) 12/15/24 19:55 RBC 4.98 10^6/uL (3.85-5.65) 12/15/24 19:55 Hgb 14.20 g/dL (11.27-16.99) 12/15/24 19:55 Hct 43.2 % (36-47) 12/15/24 19:55 MCV 86.7 fl (85-98) 12/15/24 19:55 MCH 28.5 pg (27-33) 12/15/24 19:55 MCHC 32.9 g/dL (30-55) 12/15/24 19:55 RDW 12.8 % (12.1-15.1) 12/15/24 19:55 Plt Count 189 10^3/cmm (157-399) 12/15/24 19:55 MPV 9.9 fL (7.4-10.4) 12/15/24 19:55 Neut % (Auto) 76.8 % 12/15/24 19:55 Lymph % (Auto) 16.6 % 12/15/24 19:55 [place] % (Auto) 5.1 % 12/15/24 19:55 Eos % (Auto) 0.8 % 12/15/24 19:55 Baso % (Auto) 0.4 % 12/15/24 19:55 Neut # (Auto) 7.54 10^3/uL (1.8-7.7) 12/15/24 19:55 Lymph # (Auto) 1.6 10^3/uL (0.8-4.8) 12/15/24 19:55 [place] # (Auto) 0.5 10^3/uL (0.2-0.9) 12/15/24 19:55 Eos # (Auto) 0.1 10^3/uL (0.0-0.8) 12/15/24 19:55 Baso # (Auto) 0.0 10^3/uL (0.0-0.1) 12/15/24 19:55 Nucleated RBC % (auto) 0 % 12/15/24 19:55 Nucleated RBCs # 0.0 /100WBC 12/15/24 19:55 Sodium 139 mmol/L (136-145) 12/15/24 19:55 Potassium 3.5 mmol/L (3.5-5.1) 12/15/24 19:55 Chloride 102 mmol/L (98-107) 12/15/24 19:55 Carbon Dioxide 21 mmol/L (22-29) L 12/15/24 19:55 Anion Gap 19.5 (5-19) H 12/15/24 19:55 BUN 9 mg/dL (6-20) 12/15/24 19:55 Creatinine 0.6 mg/dL (0.5-0.9) 12/15/24 19:55 GFR Calculation 122.8 mL/min (90-130) 12/15/24 19:55 Glucose 78 mg/dL (65-115) 12/15/24 19:55 Calculated Osmolality 286 mOsm/kg (285-295) 12/15/24 19:55 Calcium 9.5 mg/dL (8.5-10.5) 12/15/24 19:55 Total Bilirubin 0.3 mg/dL (0.15-1.2) 12/15/24 19:55 AST 13 U/L (0-32) 12/15/24 19:55 ALT 10 U/L (0-33) 12/15/24 19:55 Alkaline Phosphatase 51 U/L (35-105) 12/15/24 19:55 Total Protein 7.6 g/dL (6.6-8.7) 12/15/24 19:55 Albumin 4.7 g/dL (3.5-5.2) 12/15/24 19:55 Globulin 2.9 g/dL (1.3-4.6) 12/15/24 19:55 All radiology interpretation(s) finalized by discharge Discharge Plan Discharge Patient Disposition: Home Clinical Impression: Atypical chest pain Condition: Stable Prescriptions: No Action PNV cmb#95-ferrous fumarate-FA [] 28 mg iron- 800 mcg Tablet 1 tab PO DAILY labetalol 200 mg Tablet 200 mg PO BID Qty: 60 0RF Discharge Orders: Discharge ED (Routine); Ordered 12/15/24 Ordered By: Britton Duong Referrals: Ethan Evangelista MD [Primary Care Provider, Family Practice] Discharge Diet: Usual diet Discharge Activity: Resume usual activity Patient Instructions: Opioid Safety, Pain Management Activity Restrictions/Additional Instructions: Thank you for choosing [facility] for your healthcare needs today. It is very important that you follow up as instructed or that you return to the Emergency Department should you have concerns or if your condition changes or worsens in any way. You are seen in the emergency room with complaints of chest comfort your chest x-ray EKG were normal. Your other lab test did not show any significant abnormalities. Recommend using [id number] Pepcid or famotidine as needed. If your symptoms recur follow-up with your primary care doctor Print Language: Czech Coding Level of Care Code ED Thermometer Maker for Padmaja Bo
[2024-12-15 20:04] LABS: Basophils % 0.4 %; Eosinophils # 0.1 10^3/uL (0.0-0.8); Eosinophils % 0.8 %; Hematocrit 43.2 % (36-47); Lymphocytes # 1.6 10^3/uL (0.8-4.8); Lymphocytes % 16.6 %; Mean Corpuscular HGB Conc 32.9 g/dL (30-55); Mean Corpuscular Hemoglobin 28.5 pg (27-33); Mean Corpuscular Volume 86.7 fl (85-98); Mean Platelet Volume 9.9 fL (7.4-10.4); Monocytes # 0.5 10^3/uL (0.2-0.9); Monocytes % 5.1 %; Neutrophils # 7.54 10^3/uL (1.8-7.7); Neutrophils % 76.8 %; Nucleated Red Blood Cells % 0 %; Platelet Count 189 10^3/cmm (157-399); Red Blood Count 4.98 10^6/uL (3.85-5.65); Red Cell Distribution Width 12.8 % (12.1-15.1); White Blood Count 9.82 10^3/uL (3.29-11.43)
[2024-12-15] MEDS: sodium chloride 0.9% 1,000 ML 999 ML IV (20:21)
[2024-12-15 20:22] VITALS: BP 134/88; PULSE 84; O2SAT 98
[2024-12-15 20:30] LABS: Alanine Aminotransferase 10 U/L (0-33); Albumin Level 4.7 g/dL (3.5-5.2); Alkaline Phosphatase 51 U/L (35-105); Anion Gap 19.5 (5-19); Aspartate Amino Transferase 13 U/L (0-32); Blood Urea Nitrogen 9 mg/dL (6-20); Calcium 9.5 mg/dL (8.5-10.5); Carbon Dioxide 21 mmol/L (22-29); Chloride 102 mmol/L (98-107); Creatinine Clr Calc Pharmacy 136.1219; Globulin 2.9 g/dL (1.3-4.6); Glomerular Filtration Rate 122.8 mL/min (90-130); Glucose 78 mg/dL (65-115); Osmolality Calculated 286 mOsm/kg (285-295); Potassium 3.5 mmol/L (3.5-5.1); Sodium 139 mmol/L (136-145); Total Bilirubin 0.3 mg/dL (0.15-1.2); Total Protein 7.6 g/dL (6.6-8.7)
[2024-12-15 21:13] VITALS: BP 125/78; PULSE 109; RESP 18; O2SAT 100
[2024-12-15 21:14] VITALS: BP 125/78; PULSE 96; RESP 16; O2SAT 98
--- NOTE | 2024-12-16 15:39 | ECG_ITS ---
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 Measurements Intervals [place] Rate: 102 P: 74 [place]: 148 QRS: 105 QRSD: 94 T: 73 QT: 339 QTc: 443 Interpretive Statements SINUS TACHYCARDIA RIGHT AXIS DEVIATION [QRS AXIS > 100] INCOMPLETE RIGHT BUNDLE BRANCH BLOCK [90+ ms QRS DURATION, TERMINAL R IN V1/V2, 40+ ms S IN I/aVL/V4/V5/V6] Compared to ECG 12/15/2024 17:48:59 Incomplete right bundle-branch block now present T-wave abnormality no longer present Electronically Signed On 12-18-2024 10:25:12 CDT by Erick Mckeon M.D. [email or web address] [id number]
== END 2024-12-15 21:18 | disposition home or self-care (01) ==
PROVIDERS: Emergency Provider Family Medicine; PCP Family Medicine
DX: R07.89 Other chest pain (principal)
CPT/HCPCS: 36415; 71045; 80053; 85025; 93005; 99285; J7030